=== PATIENT | male | born 1950 | race Caucasian/White ===

== ENCOUNTER → 2016-07-19 | Outpatient (CLI) | payer OTHER ==
[~2016-07-19] MED LIST: ASPIRIN EC325 MG PO; COZAAR25 MG PO; LOSARTAN POTASS50 MG PO; SIMVASTATIN20 MG PO
--- NOTE | 2016-07-19 14:45 | RADIOLOGY REPORT PS360 ---
CHEST(2 VIEWS-NOT PORTABLE) HISTORY: PERSISTENT COUGH, ORDERING PHYSICIAN: Aleksandr Rivera MD PATIENT AGE: 65 years COMPARISON: 01/29/2013 FINDINGS: The cardiomediastinal silhouette and pulmonary vascularity are within normal limits. The lungs are clear without infiltrates, suspicious nodules, or pleural effusions. No acute bony abnormalities. IMPRESSION: Negative chest, no acute finding
== END ==
LOC: RAD 14:20
DX: R05 Cough (principal)